=== PATIENT | male | born 1990 | race Two or more races ===

== ENCOUNTER 2018-11-18 22:41 | Emergency (ER) | payer OTHER ==
[~2018-11-18] VITALS: Ht 175.3 cm; Wt 89.8 kg
[2018-11-18 22:48] VITALS: BP 140/77
--- NOTE | 2018-11-18 23:11 | PHYS DOC ---
Past History Past Medical History: Depression, Hypothyroid Adult General HPI HPI Patient is a 28-year-old male presents with head pain and neck pain. He was playing a game, went up for a catch, falling backwards hit his head on the ground. This happened approximately 1999. He was not knocked unconscious however he did see "stars." He has some nausea, no vomiting. He was brought in by EMS with a c-collar applied. Pain is currently 3 out of 10.[] Review of Systems Review of Systems Constitutional: Denies fever or chills [] Eyes: Denies change in visual acuity, redness, or eye pain [] HENT: Denies nasal congestion or sore throat [] Respiratory: Denies cough or shortness of breath [] Cardiovascular: No chest pain or palpitations[] GI: Denies abdominal pain, nausea, vomiting, bloody stools or diarrhea [] : Denies dysuria or hematuria [] Musculoskeletal: Denies back pain or joint pain [] Integument: Denies rash or skin lesions [] Neurologic: Denies focal weakness or sensory changes [] Endocrine: Denies polyuria or polydipsia [] All other systems were reviewed and found to be within normal limits, except as documented in this note. Physical Exam Physical Exam Constitutional: Well developed, well nourished, no acute distress, non-toxic appearance. [] HENT: Normocephalic, tenderness to the occiput, bilateral external ears normal, oropharynx moist, no oral exudates, nose normal. [] Eyes: PERRLA, EOMI, conjunctiva normal, no discharge. [] Neck: Normal range of motion, tenderness in the right-sided paraspinal/paracervical musculature, supple, no stridor. [] Cardiovascular:Heart rate regular rhythm, no murmur [] Lungs & Thorax: Bilateral breath sounds clear to auscultation [] Abdomen: Bowel sounds normal, soft, no tenderness, no masses, no pulsatile m asses. [] Skin: Warm, dry, no erythema, no rash. [] Back: No tenderness, no CVA tenderness. [] Extremities: No tenderness, no cyanosis, no clubbing, ROM intact, no edema. [] Neurologic: Alert and oriented X 3, normal motor function, normal sensory function, no focal deficits noted. [] Psychologic: Affect normal, judgement normal, mood normal. [] EKG EKG [] Radiology/Procedures Radiology/Procedures PROCEDURE: CT HEAD AND CERVICAL SPINE WO EXAM: Head and cervical spine CT without contrast. HISTORY: Pain. Fall. TECHNIQUE: Computed tomographic images the head and cervical spine were obtained without contrast.. *One or more of the following individualized dose reduction techniques were utilized for this examination: 1. Automated exposure control. 2. Adjustment of the mA and/or kV according to patient size. 3. Use of iterative reconstruction technique. COMPARISON: None. FINDINGS: Cervical spine: There is no listhesis. The vertebral bodies are normal in height and the disc spaces are preserved. There is no fracture. There is a small benign bone island within the posterior elements at C3. No suspicious osseous lesion is seen. There is no significant foraminal or central canal stenosis. The lung apices are unremarkable. The thyroid is absent. Head: There is no hemorrhage. There is no mass effect or midline shift. There is no hydrocephalus. The zheng-white matter differentiation pattern is intact. The orbits and visualized paranasal sinuses mastoid air cells are unremarkable. No calvarial lesion is seen. IMPRESSION: No acute intracranial finding or evidence of acute cervical spine trauma.[] Course & Med Decision Making Course & Med Decision Making Pertinent Labs and Imaging studies reviewed. (See chart for details) ED course: Patient arrived, was placed in bed, and tolerated exam well. He was transported to and from [place] with any complications. After the return of the CT findings, reevaluation was made of his neck. He was able to move with full active range of motion. He was cleared from the cervical collar. Findings were discussed with the patient who voiced understanding. All questions were answered. He was discharged in improved condition. Medical decision making: There is no evidence of intracranial bleed, skull fracture, cervical spine fracture, neurologic compromise, nor any other s ignificant condition at this time.[] Dragon Disclaimer Dragon Disclaimer This electronic medical record was generated, in whole or in part, using a voice recognition dictation system. Departure Departure: Impression: Primary Impression: Closed head injury Additional Impression: Neck strain Disposition: HOME, SELF-CARE Condition: IMPROVED Patient Instructions: Cervical Strain and Sprain with Rehab-SportsMed, Head Injury, Adult Additional Instructions: Follow-up with your regular doctor in 2 days. Return to the ER if worsening pain, weakness, or any other concerns. Scripts Meloxicam (MELOXICAM) 7.5 Mg Tablet 7.5 MG PO DAILY for PAIN, #20 TAB Prov: LUCHO MARTI DO 11/18/18 Problem Qualifiers Primary Impression: Closed head injury Encounter type: initial encounter Qualified Codes: S09.90XA - Unspecified injury of head, initial encounter Additional Impression: Neck strain Encounter type: initial encounter Qualified Codes: S16.1XXA - Strain of muscle, fascia and tendon at neck level, initial encounter LUCHO MARTI DO November 18, 2018 23:11
--- NOTE | 2018-11-18 23:19 | RAD ---
EXAM: Head and cervical spine CT without contrast. HISTORY: Pain. Fall. TECHNIQUE: Computed tomographic images the head and cervical spine were obtained without contrast.. *One or more of the following individualized dose reduction techniques were utilized for this examination: 1. Automated exposure control. 2. Adjustment of the mA and/or kV according to patient size. 3. Use of iterative reconstruction technique. COMPARISON: None. FINDINGS: Cervical spine: There is no listhesis. The vertebral bodies are normal in height and the disc spaces are preserved. There is no fracture. There is a small benign bone island within the posterior elements at C3. No suspicious osseous lesion is seen. There is no significant foraminal or central canal stenosis. The lung apices are unremarkable. The thyroid is absent. Head: There is no hemorrhage. There is no mass effect or midline shift. There is no hydrocephalus. The zheng-white matter differentiation pattern is intact. The orbits and visualized paranasal sinuses mastoid air cells are unremarkable. No calvarial lesion is seen. IMPRESSION: No acute intracranial finding or evidence of acute cervical spine trauma. Electronically signed by: Bernadette Sheth MD (11/18/2018 11:16 PM) [facility]
[2018-11-18] MEDS ORDERED: ONDANSETRON ODT 4 MG TAB.RAPDIS PO ONE (23:30)
[2018-11-18] MEDS ORDERED: MELO7.5T29 PO (23:31)
== END 2018-11-18 23:48 | disposition home or self-care (01) ==
LOC: ER 22:41
DX: S16.1XXA Strain of muscle, fascia and tendon at neck level, initial encounter (principal); S09.90XA Unspecified injury of head, initial encounter; E03.9 Hypothyroidism, unspecified; F32.9 Major depressive disorder, single episode, unspecified; W18.09XA Striking against other object with subsequent fall, initial encounter; Y93.89 Activity, other specified; Y92.89 Other specified places as the place of occurrence of the external cause; Y99.8 Other external cause status
CPT/HCPCS: 70450; 72125; 99284; Q0162